=== PATIENT | female | born 1950 | race Two or more races ===

== ENCOUNTER 2025-03-23 10:13 | Inpatient (IN) | payer MEDICARE, OTHER ==
[~2025-03-23] VITALS: Ht 154.9 cm; Wt 73.5 kg
[~2025-03-23 10:13] MED LIST: NYST15CR2 TP
[2025-03-23] MEDS ORDERED: ONDANSETRON HCL/PF 4 MG/2 ML VIAL ONE (10:44)
[2025-03-23] MEDS ORDERED: PANTOPRAZOLE 40 MG VIAL ONE (10:44)
[2025-03-23 10:57] LABS: PLATELET COUNT (AUTO) 256 K/uL (150-450); RED BLOOD CELL COUNT(AUTO) 4.20 MIL/uL (4.0-5.2); RED CELL DISTRIBUTION WIDTH 15.8 % (11.5-15.0); WHITE BLOOD COUNT (AUTO) 9.8 K/uL (4.3-11.0)
[2025-03-23 11:06] LABS: CALCIUM, SERUM 9.4 mg/dL (8.5-10.1); CREATININE 0.7 mg/dL (0.6-1.3); SODIUM SERUM 140.0 mmol/L (136-145); UREA NITROGEN, BLOOD 26.0 mg/dL (7-18)
[2025-03-23] MEDS: ONDANSETRON HCL/PF 4 MG/2 ML VIAL IVP ONE (11:10)
[2025-03-23] MEDS: PANTOPRAZOLE 40 MG VIAL IV ONE (11:10)
[2025-03-23] MEDS: IV NS 0.9% 500 ML BAG IV ONE ×2 (11:10→11:17)
[2025-03-23 11:12] LABS: ASPARTATE AMINOTRANSFERASE 17.0 U/L (15-37); TOTAL PROTEIN, SERUM 7.2 g/dL (6.4-8.2)
[2025-03-23 11:33] LABS: INR 1.35 (0.91-1.10)
[2025-03-23] MEDS ORDERED: ACETAMINOPHEN ES 500 MG TABLET ONE (11:47)
[2025-03-23] MEDS: ACETAMINOPHEN ES 500 MG TABLET PO ONE (11:49)
[2025-03-23] MEDS ORDERED: ACET-73 PO (12:01)
[2025-03-23] MEDS ORDERED: ATOR80TA PO (12:01)
[2025-03-23] MEDS ORDERED: POLY17PO4 PO (12:01)
[2025-03-23] MEDS ORDERED: GUAI100S9 PO (12:01)
[2025-03-23] MEDS ORDERED: ACET325T53 PO ×2 (12:01)
[2025-03-23] MEDS ORDERED: APIX5TAB PO (12:01)
[2025-03-23] MEDS ORDERED: DOCU100C36 PO (12:01)
[2025-03-23] MEDS ORDERED: CHLO473M5 PO (12:01)
[2025-03-23] MEDS ORDERED: IPRA0.2S9 IH ×2 (12:01)
[2025-03-23] MEDS ORDERED: FERR220E2 PO (12:01)
[2025-03-23] MEDS ORDERED: ALBU2.5V11 IH (12:01)
[2025-03-23] MEDS ORDERED: CRAN425C6 PO (12:01)
[2025-03-23] MEDS ORDERED: TURMERIC PO (12:01)
[2025-03-23] MEDS ORDERED: DICL100G34 TP (12:01)
[2025-03-23] MEDS ORDERED: ONDA-97 PO (12:02)
[2025-03-23] MEDS ORDERED: HYDR-4076 PO (12:02)
[2025-03-23] MEDS ORDERED: METO5TAB2 PO (12:02)
[2025-03-23] MEDS ORDERED: SIME80TA15 PO (12:02)
[2025-03-23] MEDS ORDERED: MELA3TAB41 PO (12:02)
[2025-03-23] MEDS ORDERED: MAGN400T52 PO (12:02)
[2025-03-23] MEDS ORDERED: HYDR-500 PO (12:02)
[2025-03-23] MEDS ORDERED: LIDO30AD10 TP (12:02)
[2025-03-23] MEDS ORDERED: METO25TA20 PO (12:02)
[2025-03-23] MEDS ORDERED: CALCIUM CARBONATE PO (12:02)
[2025-03-23] MEDS ORDERED: OMEP20CA15 PO (12:02)
[2025-03-23] MEDS ORDERED: HYDROCODONE/APAP 5/325MG TABLET ONE (13:08)
[2025-03-23] MEDS: HYDROCODONE/APAP 5/325MG TABLET PO ONE (13:10)
[2025-03-23 15:02] VITALS: BP 102/61; TEMP 98.3; O2SAT 97
[2025-03-23] MEDS: CHLORHEXIDINE GLUCONATE 15 ML UDC MM SCH (17:31)
[2025-03-23] MEDS: ACETAMINOPHEN 325 MG TABLET PO PRN (17:33)
[2025-03-23] MEDS: DICLOFENAC TOPICAL 100 GM TUBE TP SCH (17:43)
[2025-03-23] MEDS: NYSTATIN/TRIAMCIN CREAM 15 GM TUBE TP SCH (17:43)
[2025-03-23 20:00] VITALS: BP 111/65; TEMP 97.8; O2SAT 100
[2025-03-23] MEDS: PANTOPRAZOLE 40 MG VIAL IV SCH (21:14)
[2025-03-23] MEDS: PERMETHRIN 5% CRM 60 GM TUBE TP ONE (21:51)
[2025-03-23 22:00] VITALS: BP 111/65; TEMP 97.8; O2SAT 100
[2025-03-23 23:02] VITALS: BP 111/65; TEMP 97.8; O2SAT 100
[2025-03-23] MEDS: IV NS 0.9% 1,000 ML IV PRN (23:03)
[2025-03-24 03:05] VITALS: BP 111/65; TEMP 97.8; O2SAT 100
[2025-03-24 06:04] LABS: PLATELET COUNT (AUTO) 212 K/uL (150-450); RED BLOOD CELL COUNT(AUTO) 3.72 MIL/uL (4.0-5.2); RED CELL DISTRIBUTION WIDTH 15.5 % (11.5-15.0); WHITE BLOOD COUNT (AUTO) 7.2 K/uL (4.3-11.0)
[2025-03-24 06:09] LABS: CALCIUM, SERUM 9.0 mg/dL (8.5-10.1); CREATININE 0.6 mg/dL (0.6-1.3); PHOSPHORUS 3.5 mg/dL (2.5-4.9); SODIUM SERUM 144.0 mmol/L (136-145); UREA NITROGEN, BLOOD 16.0 mg/dL (7-18)
[2025-03-24 08:15] VITALS: BP 121/83; TEMP 97.5; O2SAT 98
[2025-03-24] MEDS: LIDOCAINE 5% (PATCH) 1 EA PATCH TP SCH (08:27)
[2025-03-24 11:20] LABS: INR 1.02 (0.91-1.10)
[2025-03-24 12:10] VITALS: BP 104/63; TEMP 97.8; O2SAT 97
[2025-03-24] MEDS: ONDANSETRON HCL/PF 4 MG/2 ML VIAL IVP PRN (13:02)
[2025-03-24 16:10] VITALS: BP 103/65; TEMP 98.1; O2SAT 97
[2025-03-24 20:00] VITALS: BP 108/78; TEMP 98.2; O2SAT 97
[2025-03-25] VITALS: BP 113/63; TEMP 98.1; O2SAT 97
[2025-03-25 04:00] VITALS: BP 100/65; TEMP 97.9; O2SAT 97
[2025-03-25 08:00] VITALS: BP 104/61; TEMP 98.4; O2SAT 96
[2025-03-25 08:36] LABS: PLATELET COUNT (AUTO) 208 K/uL (150-450); RED BLOOD CELL COUNT(AUTO) 3.53 MIL/uL (4.0-5.2); RED CELL DISTRIBUTION WIDTH 15.2 % (11.5-15.0); WHITE BLOOD COUNT (AUTO) 7.9 K/uL (4.3-11.0)
[2025-03-25 09:04] LABS: CALCIUM, SERUM 8.6 mg/dL (8.5-10.1); CREATININE 0.7 mg/dL (0.6-1.3); PHOSPHORUS 4.0 mg/dL (2.5-4.9); SODIUM SERUM 143.0 mmol/L (136-145); UREA NITROGEN, BLOOD 11.0 mg/dL (7-18)
[2025-03-25] MEDS: LACTULOSE 10 G/15 ML UDC (PYXIS) PR ONE (12:26)
[2025-03-25 15:18] LABS: OCCULT BLOOD STOOL NEGATIVE (NEGATIVE)
[2025-03-25 15:41] LABS: IRON, SERUM 40.0 ug/dl (50-175)
[2025-03-25] MEDS ORDERED: IOHEXOL-300 100 ML VIAL IV ONE (16:03)
[2025-03-25] MEDS ORDERED: IV NS 0.9% 250 ML IV ONE (16:04)
[2025-03-25] MEDS: PANTOPRAZOLE 40 MG/PACK PACK PO SCH (21:31)
[2025-03-26] MEDS: diphenhydrAMINE HCL ELIX 25 MG/10 ML UDC PO PRN (05:17)
[2025-03-26 06:19] LABS: PLATELET COUNT (AUTO) 210 K/uL (150-450); RED BLOOD CELL COUNT(AUTO) 3.44 MIL/uL (4.0-5.2); RED CELL DISTRIBUTION WIDTH 15.2 % (11.5-15.0); WHITE BLOOD COUNT (AUTO) 5.7 K/uL (4.3-11.0)
[2025-03-26 06:23] LABS: INR 1.01 (0.91-1.10)
[2025-03-26 07:11] LABS: ASPARTATE AMINOTRANSFERASE 17.0 U/L (15-37); CALCIUM, SERUM 8.9 mg/dL (8.5-10.1); CREATININE 0.5 mg/dL (0.6-1.3); PHOSPHORUS 4.1 mg/dL (2.5-4.9); SODIUM SERUM 144.0 mmol/L (136-145); TOTAL PROTEIN, SERUM 6.2 g/dL (6.4-8.2); UREA NITROGEN, BLOOD 8.0 mg/dL (7-18)
[2025-03-26 08:07] LABS: IMMUNOGLOBULIN A, SERUM 429 mg/dL (64-422); IMMUNOGLOBULIN M, SERUM 47 mg/dL (26-217)
[2025-03-26] MEDS ORDERED: PANT40SU2 PO (10:10)
[2025-03-26 10:11] LABS: FOLIC ACID 5.6 ng/mL (>3.0)
[2025-03-26] MEDS: POTASSIUM CHLORIDE 20 MEQ POWDER PACKET NG SCH (10:58)
[2025-03-26] MEDS: TRAMADOL HCL 50 MG TABLET PO ONE (12:35)
[2025-03-27 06:22] LABS: INR 1.01 (0.91-1.10)
[2025-03-27 06:27] LABS: CALCIUM, SERUM 8.7 mg/dL (8.5-10.1); CREATININE 0.6 mg/dL (0.6-1.3); PHOSPHORUS 3.8 mg/dL (2.5-4.9); SODIUM SERUM 144.0 mmol/L (136-145); UREA NITROGEN, BLOOD 10.0 mg/dL (7-18)
[2025-03-27 09:01] VITALS: BP 111/62; TEMP 97.9; O2SAT 96
[2025-03-27] MEDS: MORPHINE SULFATE INJ 2 MG/ML DISP.SYRIN IV PRN (12:24)
[2025-03-27] MEDS ORDERED: MIDAZOLAM HCL 2 MG/2ML VIAL IV PRN (14:30)
[2025-03-27] MEDS ORDERED: FLUMAZENIL 0.5 MG VIAL IV PRN (14:30)
[2025-03-27] MEDS ORDERED: NALOXONE PREFILLED SYRINGE 2 MG/2 ML SYRINGE IV PRN (14:30)
[2025-03-27] MEDS ORDERED: FENTANYL PF 250MCG/5ML AMPUL IV PRN (14:30)
[2025-03-27] MEDS: PANTOPRAZOLE 40 MG VIAL IV SCH (15:37)
[2025-03-27] MEDS: SOD FERRIC GLUC 125 MG in IV NS 0.9% 100 ML IV SCH (15:52)
[2025-03-27 16:00] VITALS: BP 151/83; TEMP 97.8; O2SAT 97
[2025-03-27 16:26] LABS: PLATELET COUNT (AUTO) 200 K/uL (150-450); RED BLOOD CELL COUNT(AUTO) 3.55 MIL/uL (4.0-5.2); RED CELL DISTRIBUTION WIDTH 15.4 % (11.5-15.0); WHITE BLOOD COUNT (AUTO) 7.1 K/uL (4.3-11.0)
[2025-03-27 20:00] VITALS: BP 126/63; TEMP 98.1; O2SAT 96
[2025-03-28 04:00] VITALS: BP 105/59; TEMP 98.2; O2SAT 97
[2025-03-28 05:46] LABS: PLATELET COUNT (AUTO) 198 K/uL (150-450); RED BLOOD CELL COUNT(AUTO) 3.27 MIL/uL (4.0-5.2); RED CELL DISTRIBUTION WIDTH 15.0 % (11.5-15.0); WHITE BLOOD COUNT (AUTO) 8.0 K/uL (4.3-11.0)
[2025-03-28 07:06] LABS: CALCIUM, SERUM 8.5 mg/dL (8.5-10.1); CREATININE 0.6 mg/dL (0.6-1.3); SODIUM SERUM 143.0 mmol/L (136-145); UREA NITROGEN, BLOOD 6.0 mg/dL (7-18)
[2025-03-28] MEDS: SERTRALINE HCL 25 MG TABLET PO SCH (10:30)
[2025-03-28 16:00] VITALS: BP 121/70; TEMP 98.2; O2SAT 97
[2025-03-28 20:00] VITALS: BP 119/67; TEMP 98.4; O2SAT 94
[2025-03-29 04:00] VITALS: BP 115/63; TEMP 98; O2SAT 97
[2025-03-29 06:41] LABS: PLATELET COUNT (AUTO) 200 K/uL (150-450); RED BLOOD CELL COUNT(AUTO) 3.56 MIL/uL (4.0-5.2); RED CELL DISTRIBUTION WIDTH 15.0 % (11.5-15.0); WHITE BLOOD COUNT (AUTO) 10.4 K/uL (4.3-11.0)
[2025-03-29 07:04] LABS: CALCIUM, SERUM 8.9 mg/dL (8.5-10.1); CREATININE 0.6 mg/dL (0.6-1.3); SODIUM SERUM 143.0 mmol/L (136-145); UREA NITROGEN, BLOOD 5.0 mg/dL (7-18)
[2025-03-29 08:00] VITALS: BP 131/75; TEMP 99; O2SAT 95
[2025-03-29] MEDS: POTASSIUM CL. PREMIX PERIPHER. 50 ML IV SCH (11:26)
[2025-03-29] MEDS ORDERED: MIDAZOLAM HCL 2 MG/2ML VIAL ONE (14:48)
[2025-03-29] MEDS ORDERED: KETAMINE HCL (500MG/10ML) 50 MG/ML VIAL ONE (14:48)
[2025-03-29 16:30] VITALS: BP 141/86; TEMP 98.2; O2SAT 100
[2025-03-29] MEDS: TRAMADOL HCL 50 MG TABLET PO PRN (18:27)
[2025-03-29 20:00] VITALS: BP 100/63; TEMP 97; O2SAT 97
[2025-03-30] VITALS: BP 112/67; TEMP 97.9; O2SAT 95
[2025-03-30 04:00] VITALS: BP 99/66; TEMP 98.2
[2025-03-30 06:21] LABS: PLATELET COUNT (AUTO) 165 K/uL (150-450); RED BLOOD CELL COUNT(AUTO) 3.71 MIL/uL (4.0-5.2); RED CELL DISTRIBUTION WIDTH 15.6 % (11.5-15.0); WHITE BLOOD COUNT (AUTO) 9.0 K/uL (4.3-11.0)
[2025-03-30 06:33] LABS: CALCIUM, SERUM 8.9 mg/dL (8.5-10.1); CREATININE 0.8 mg/dL (0.6-1.3); SODIUM SERUM 142.0 mmol/L (136-145); UREA NITROGEN, BLOOD 5.0 mg/dL (7-18)
[2025-03-30 08:00] VITALS: BP 126/70; TEMP 98.8; O2SAT 95
[2025-03-30 12:00] VITALS: BP 124/58; TEMP 98.2; O2SAT 95
[2025-03-30] MEDS ORDERED: SERT25TA5 PO (13:00)
[2025-03-30] MEDS ORDERED: SOD62.5V IV (13:00)
[2025-03-30] MEDS ORDERED: TRAM50TA2 PO (13:00)
[2025-03-30] MEDS ORDERED: PANT40TA49 PO (13:00)
[2025-03-30 16:00] VITALS: BP 127/68; TEMP 98.4; O2SAT 95
[2025-03-30] MEDS ORDERED: PERMETHRIN 5% CRM 60 GM TUBE TP ONE (22:00)
[2025-04-03 08:08] LABS: *SPE A/G RATIO 0.8 (0.7-1.7); *SPE ALBUMIN 2.7 g/dL (2.9-4.4); *SPE ALPHA-1-GLOBULIN 0.3 g/dL (0.0-0.4); *SPE ALPHA-2-GLOBULIN 0.7 g/dL (0.4-1.0); *SPE BETA GLOBULIN 1.1 g/dL (0.7-1.3); *SPE GLOBULIN, TOTAL 3.2 g/dL (2.2-3.9); *SPE M-SPIKE Not Observed g/dL (Not Observed); *SPE PROTEIN TOTAL 5.9 g/dL (6.0-8.5); *SPEGAMMA GLOBULIN 1.1 g/dL (0.4-1.8)
== END 2025-03-30 17:54 | DRG 180 ==
LOC: ER 10:25 → TELE1 13:11 → MEDSG1 03-25 10:05 → TELE1 03-29 16:20
PROVIDERS: ADMIT Nurse Practitioner Acute Care; ATTEND Nurse Practitioner Family
PROC: 0BDF4ZX Extraction of Right Lower Lung Lobe, Percutaneous Endoscopic Approach, Diagnostic (ICD-10-PCS; principal; 2025-03-27)
PROC: 0DB38ZX Excision of Lower Esophagus, Via Natural or Artificial Opening Endoscopic, Diagnostic (ICD-10-PCS; 2025-03-29)
PROC: 0DB68ZX Excision of Stomach, Via Natural or Artificial Opening Endoscopic, Diagnostic (ICD-10-PCS; 2025-03-29)
DX: C34.31 Malignant neoplasm of lower lobe, right bronchus or lung (principal); R53.2 Functional quadriplegia; E44.1 Mild protein-calorie malnutrition; I42.9 Cardiomyopathy, unspecified; D68.69 Other thrombophilia; F32.1 Major depressive disorder, single episode, moderate; F03.918 Unspecified dementia, unspecified severity, with other behavioral disturbance; F03.93 Unspecified dementia, unspecified severity, with mood disturbance; J96.10 Chronic respiratory failure, unspecified whether with hypoxia or hypercapnia; I48.91 Unspecified atrial fibrillation; D50.9 Iron deficiency anemia, unspecified; E66.01 Morbid (severe) obesity due to excess calories; E78.5 Hyperlipidemia, unspecified; E88.09 Other disorders of plasma-protein metabolism, not elsewhere classified; G47.00 Insomnia, unspecified; I10 Essential (primary) hypertension; F43.20 Adjustment disorder, unspecified; K44.9 Diaphragmatic hernia without obstruction or gangrene; K56.41 Fecal impaction; K57.30 Diverticulosis of large intestine without perforation or abscess without bleeding; L30.9 Dermatitis, unspecified; M81.0 Age-related osteoporosis without current pathological fracture; Z79.01 Long term (current) use of anticoagulants; Z86.73 Personal history of transient ischemic attack (TIA), and cerebral infarction without residual deficits; K31.7 Polyp of stomach and duodenum; R97.0 Elevated carcinoembryonic antigen [CEA]; R91.1 Solitary pulmonary nodule; Z68.30 Body mass index [BMI] 30.0-30.9, adult; K22.89 Other specified disease of esophagus; K29.70 Gastritis, unspecified, without bleeding
CPT/HCPCS: 36415; 71045-TC; 71260-TC; 73564-TC; 80048-TC; 80076-TC; 82272-TC; 82378; 82607-TC; 82728-TC; 82784; 83540-TC; 83615-TC; 83690-TC; 83735-TC; 84100-TC; 84155; 84165; 84443-TC; 85025-TC; 85027-TC; 85610-TC; 85730-TC; 86334; 86850-TC; 87081-TC; 88305-TC; 88313-TC; 88333-TC; 88341; 88342; 93971-TC; A4223; G0378; J2250; J2270; J2405; J2470; J2704; J2916; J3010; J3480; J3490; J7030; J7040; J7050; Q0163; Q9967